=== PATIENT | female | born 1965 | race African-American/Black ===

== ENCOUNTER 2017-11-14 14:36 | Emergency (ER) | payer BC, MEDICAID ==
--- NOTE | 2017-11-14 15:11 | ER Document Report ---
ED Fever - General Chief Complaint: Fever Stated Complaint: FEVER/CHILLS Time Seen by Provider: 11/14/17 14:43 Notes: 52-year-old female patient to the emergency department via EMS from urgent care for evaluation of possible meningitis. Patient presented to the clinic complaining of severe neck pain, back pain and neck stiffness with headache and sore throat and fever. Sore throat started first. Radiates to the back of her neck. Goes down her spine. Cannot move her neck without significant pain. Denies any other major medical problems at this time. No recent surgeries. No recent antibiotic use. No concerning exposures. TRAVEL OUTSIDE OF THE [place] 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 denies: Malaise, Weakness EENT: Other - Neck stiffness, neck pain. denies: Blurred vision, Double vision Cardiovascular: denies: Chest pain, Palpitations, Heart racing Respiratory: denies: Cough, Hurts to breathe, Short of breath Gastrointestinal: denies: Abdominal pain, Diarrhea, Nausea, Vomiting Genitourinary: denies: Burning, Dysuria, Discharge Musculoskeletal: Back pain, Muscle pain, Muscle stiffness, Neck pain. denies: Joint pain Skin: denies: Change in color, Change in hair/nails, Dryness, Lesions, Lumps, Rash Hematologic/Lymphatic: denies: Anemia, Blood clots, Easy bleeding, Easy bruising Neurological/Psychological: Headaches. denies: Confusion, Dementia, Weakness, Paralysis, Seizure, Numbness Physical Exam - Vital signs Vitals: Pulse Ox 98 11/14/17 14:54 Interpretation: Normal - General General appearance: Appears well, Alert - HEENT Head: Normocephalic, Atraumatic Eyes: Normal Pupils: PERRL Nasal: Normal Mouth/Lips: Normal Mucous membranes: Normal Pharynx: Erythema. No: Exudate, Peritonsillar abscess Neck: Brudzinski, Meningismus. No: Neck mass, Supple - Respiratory Respiratory status: No respiratory distress Chest status: Nontender Breath sounds: Normal Chest palpation: Normal - Cardiovascular Rhythm: Regular Heart sounds: Normal auscultation Murmur: No - Abdominal Inspection: Normal Distension: No distension Bowel sounds: Normal Tenderness: Nontender Organomegaly: No organomegaly - Back Back: Normal, Nontender - Extremities General upper extremity: Normal inspection, Nontender, Normal color, Normal ROM , Normal temperature General lower extremity: Normal inspection, Nontender, Normal color, Normal ROM , Normal temperature, Normal weight bearing. No: Nicky's sign - Neurological Neuro grossly intact: Yes Cognition: Normal Orientation: AAOx4 Dany Coma Scale Eye Opening: Spontaneous [place] Coma Scale Verbal: Oriented [place] Coma Scale Motor: Obeys Commands [place] Coma Scale Total: 15 Speech: Normal Motor strength normal: LUE, RUE, LLE, RLE Sensory: Normal - Psychological Associated symptoms: Normal affect, Normal mood - Skin Skin Temperature: Warm Skin Moisture: Dry Skin Color: Normal Course - Re-evaluation Re-evalutation: 11/14/17 17:54 Rapid strep is positive. Still has neck stiffness. Proceeded with LP to rule out meningitis. Spinal fluid was clear. Sent to the lab. We will give some more pain medication at this time. 11/14/17 19:07 Gram stain pending. No WBCs. Appropriate amount of RBCs. Unlikely this represents meningitis. Patient feeling much more comfortable at this time. Fluids have been given. Antibiotics given. 11/14/17 23:58 LP was performed. Fluid was clear and no difficulty obtaining. CSF results were reviewed. Gram stain was negative. No WBCs. Patient received fluids, antibiotics and Toradol. Feeling much better. Neck is mobile and is no longer a problem. Rapid strep came back positive. This has been treated. We will discharge her at this time on antibiotics. Patient is sitting upright in no acute distress. Chest x-ray was reviewed. No widened mediastinum. Patient is moving neck freely. No chest pain. No shortness of breath. Swallowing is intact. Very low risk at this time with meningitis. Strict instructions were given that if symptoms are getting worse, unable to keep her medications down, any other symptoms she should return immediately. Patient is smiling and in no acute distress and is nontoxic appearing. Comfortable discharging at this time. 11/15/17 00:00 11/15/17 00:01 Microbiology 11/14/17 17:41 Gram Stain - Preliminary Cerebral Spinal Fluid - Csf Laboratory 11/14/17 11/14/17 11/14/17 14:17 14:17 14:17 WBC 19.4 H RBC 4.25 Hgb 12.0 Hct 36.1 MCV 85 MCH 28.1 MCHC 33.1 RDW 15.6 H Plt Count 237 Seg Neutrophils % 80.9 H Lymphocytes % 13.4 Monocytes % 5.4 Eosinophils % 0.1 Basophils % 0.2 Absolute Neutrophils 15.7 H Absolute Lymphocytes 2.6 Absolute Monocytes 1.0 Absolute Eosinophils 0.0 Absolute Basophils 0.0 ESR 80 H PT 15.1 INR 1.13 APTT 40.1 H Sodium 142.7 Potassium 3.6 Chloride 101 Carbon Dioxide 27 Anion Gap 15 BUN 10 Creatinine 0.76 Est GFR ( Amer) > 60 Est GFR (Non-Af Amer) > 60 Glucose 103 Lactic Acid Calcium 9.4 Total Bilirubin 0.7 Direct Bilirubin 0.4 Neonat Total Bilirubin Not Reportable Neonat Direct Bilirubin Not Reportable Neonat Indirect Bili Not Reportable AST 37 H ALT 30 Alkaline Phosphatase 129 H Creatine Kinase 77 CK-MB (CK-2) Troponin I C-Reactive Protein 80.2 H Total Protein 8.7 H Albumin 4.4 Fluid Tube Number CSF Volume CSF Appearance CSF Color CSF WBC CSF RBC CSF Glucose CSF Total Protein Group A Strep Rapid 11/14/17 11/14/17 11/14/17 14:17 14:59 16:08 WBC RBC Hgb Hct MCV MCH MCHC RDW Plt Count Seg Neutrophils % Lymphocytes % Monocytes % Eosinophils % Basophils % Absolute Neutrophils Absolute Lymphocytes Absolute Monocytes Absolute Eosinophils Absolute Basophils ESR PT INR APTT Sodium Potassium Chloride Carbon Dioxide Anion Gap BUN Creatinine Est GFR ( Amer) Est GFR (Non-Af Amer) Glucose Lactic Acid 0.8 Calcium Total Bilirubin Direct Bilirubin Neonat Total Bilirubin Neonat Direct Bilirubin Neonat Indirect Bili AST ALT Alkaline Phosphatase Creatine Kinase CK-MB (CK-2) < 0.22 Troponin I < 0.012 C-Reactive Protein Total Protein Albumin Fluid Tube Number CSF Volume CSF Appearance CSF Color CSF WBC CSF RBC CSF Glucose CSF Total Protein Group A Strep Rapid POSITIVE 07/31/18 07/31/18 07/31/18 17:41 17:41 18:34 WBC RBC Hgb Hct MCV MCH MCHC RDW Plt Count Seg Neutrophils % Lymphocytes % Monocytes % Eosinophils % Basophils % Absolute Neutrophils Absolute Lymphocytes Absolute Monocytes Absolute Eosinophils Absolute Basophils ESR PT INR APTT Sodium Potassium Chloride Carbon Dioxide Anion Gap BUN Creatinine Est GFR ( Amer) Est GFR (Non-Af Amer) Glucose Lactic Acid Calcium Total Bilirubin Direct Bilirubin Neonat Total Bilirubin Neonat Direct Bilirubin Neonat Indirect Bili AST ALT Alkaline Phosphatase Creatine Kinase CK-MB (CK-2) Troponin I C-Reactive Protein Total Protein Albumin Fluid Tube Number 1 4 CSF Volume 4.3 4.3 CSF Appearance CLEAR CLEAR CSF Color COLORLESS COLORLESS CSF WBC 0 1 CSF RBC 104 1 CSF Glucose 65 CSF Total Protein 47 Group A Strep Rapid - Vital Signs Vital signs: Temp Pulse Resp BP Pulse Ox 97.6 F 17 102/65 98 11/14/17 20:50 11/14/17 20:48 11/14/17 20:48 11/14/17 20:48 11/14/17 17:55 Laboratory 11/14/17 11/14/17 11/14/17 14:17 14:17 14:17 WBC 19.4 H RBC 4.25 Hgb 12.0 Hct 36.1 MCV 85 MCH 28.1 MCHC 33.1 RDW 15.6 H Plt Count 237 Seg Neutrophils % 80.9 H Lymphocytes % 13.4 Monocytes % 5.4 Eosinophils % 0.1 Basophils % 0.2 Absolute Neutrophils 15.7 H Absolute Lymphocytes 2.6 Absolute Monocytes 1.0 Absolute Eosinophils 0.0 Absolute Basophils 0.0 ESR 80 H PT 15.1 INR 1.13 APTT 40.1 H Sodium 142.7 Potassium 3.6 Chloride 101 Carbon Dioxide 27 Anion Gap 15 BUN 10 Creatinine 0.76 Est GFR ( Amer) > 60 Est GFR (Non-Af Amer) > 60 Glucose 103 Lactic Acid Calcium 9.4 Total Bilirubin 0.7 Direct Bilirubin 0.4 Neonat Total Bilirubin Not Reportable Neonat Direct Bilirubin Not Reportable Neonat Indirect Bili Not Reportable AST 37 H ALT 30 Alkaline Phosphatase 129 H Creatine Kinase 77 CK-MB (CK-2) Troponin I C-Reactive Protein 80.2 H Total Protein 8.7 H Albumin 4.4 Group A Strep Rapid 11/14/17 11/14/17 11/14/17 14:17 14:59 16:08 WBC RBC Hgb Hct MCV MCH MCHC RDW Plt Count Seg Neutrophils % Lymphocytes % Monocytes % Eosinophils % Basophils % Absolute Neutrophils Absolute Lymphocytes Absolute Monocytes Absolute Eosinophils Absolute Basophils ESR PT INR APTT Sodium Potassium Chloride Carbon Dioxide Anion Gap BUN Creatinine Est GFR ( Amer) Est GFR (Non-Af Amer) Glucose Lactic Acid 0.8 Calcium Total Bilirubin Direct Bilirubin Neonat Total Bilirubin Neonat Direct Bilirubin Neonat Indirect Bili AST ALT Alkaline Phosphatase Creatine Kinase CK-MB (CK-2) < 0.22 Troponin I < 0.012 C-Reactive Protein Total Protein Albumin Group A Strep Rapid POSITIVE Head CT 11/14/17 15:08 IMPRESSION: NORMAL BRAIN CT WITHOUT CONTRAST. EVIDENCE OF ACUTE STROKE: NO. Chest X-Ray 11/14/17 15:09 IMPRESSION: Borderline heart size with no CHF. - Laboratory Result Diagrams: 11/14/17 14:17 11/14/17 14:17 Laboratory results interpreted by me: 11/14/17 11/14/17 11/14/17 14:17 14:17 14:17 WBC 19.4 H RDW 15.6 H Seg Neutrophils % 80.9 H Absolute Neutrophils 15.7 H ESR 80 H APTT 40.1 H AST 37 H Alkaline Phosphatase 129 H C-Reactive Protein 80.2 H Total Protein 8.7 H Procedures - Lumbar Puncture Lumbar puncture Time completed: 18:00 Consent obtained: Yes Lumbar puncture pre-procedure: Sterile PPE donned, Betadine prep applied Patient position: Sitting Needle size: 22 Lumbar puncture location: L4-L5 Anesthetic type: 1% Lidocaine mL's of anesthetic: 8 Amount/type of drainage: 5 mL's Number of attempts: 2 Complications: No Discharge - Discharge Clinical Impression: Strep sore throat Condition: Good Disposition: HOME, SELF-CARE Instructions: Strep Throat ([facility]) Additional Instructions: Continue take antibiotics as instructed. In the event that symptoms are getting worse it is very important to return. Get plenty of rest. Tylenol or ibuprofen for pain and fever. Follow-up with your regular doctor if symptoms persist. You did have a spinal tap today. Sometimes he can develop a headache after spinal tap. If you notice that you are getting a worsening headache when you go from sitting to standing or from lying to standing then you could have a spinal headache which is easily taking care of but you will need to be seen again. Prescriptions: Cefdinir [Omnicef 300 mg Capsule] 1 cap PO BID 10 Days #20 capsule Forms: Return to Work Referrals: PRECIOUS HAINES MD [ACTIVE STAFF] - Follow up as needed
[2017-11-14 15:21] LABS: INTERNATIONAL RATION (INR) 1.13; PROTHROMBIN TIME 15.1 SEC (11.4-15.4)
[2017-11-14 15:23] LABS: PARTIAL THROMBOPLASTIN TIME 40.1 SEC (23.5-35.8)
[2017-11-14 15:24] LABS: ABSOLUTE LYMPHOCYTES (AUTO) 2.6 10^3/uL (0.5-4.7); ABSOLUTE NEUT (AUTO) 15.7 10^3/uL (1.7-8.2); BASOPHILS % (AUTO) 0.2 % (0-2); EOSINOPHILS % (AUTO) 0.1 % (0-6); HEMATOCRIT 36.1 % (36.0-47.0); LYMPHOCYTES % (AUTO) 13.4 % (13-45); MEAN CORPUSCULAR HEMOGLOBIN 28.1 pg (27.0-33.4); MEAN CORPUSCULAR HGB CONC 33.1 g/dL (32.0-36.0); MEAN CORPUSCULAR VOLUME 85 fl (80-97); MONOCYTES % (AUTO) 5.4 % (3-13); PLATELET COUNT 237 10^3/uL (150-450); RED BLOOD COUNT 4.25 10^6/uL (3.72-5.28); RED CELL DISTRIBUTION WIDTH 15.6 % (11.5-14.0); SEGMENTED NEUTROPHILS % (AUTO) 80.9 % (42-78); TOTAL CELLS COUNTED % (AUTO) 100 %; WHITE BLOOD COUNT 19.4 10^3/uL (4.0-10.5)
[2017-11-14 15:38] LABS: ALANINE AMINOTRANSFERASE 30 U/L (9-52); ALBUMIN 4.4 g/dL (3.5-5.0); ALKALINE PHOSPHATASE 129 U/L (38-126); ANION GAP 15 (5-19); ASPARTATE AMINO TRANSFERASE 37 U/L (14-36); BILIRUBIN,DIRECT 0.4 mg/dL (0.0-0.4); BILIRUBIN,TOTAL 0.7 mg/dL (0.2-1.3); BLOOD UREA NITROGEN 10 mg/dL (7-20); C-REACTIVE PROTEIN 80.2 mg/L (<10.0); CALCIUM 9.4 mg/dL (8.4-10.2); CARBON DIOXIDE 27 mmol/L (22-30); CHLORIDE 101 mmol/L (98-107); CREATINE KINASE 77 U/L (30-135); GLUCOSE 103 mg/dL (75-110); POTASSIUM 3.6 mmol/L (3.6-5.0); SODIUM 142.7 mmol/L (137-145); TOTAL PROTEIN 8.7 g/dL (6.3-8.2)
--- NOTE | 2017-11-14 15:41 | RADIOLOGY REPORT (SQ) ---
EXAM DESCRIPTION: CT HEAD WITHOUT COMPLETED DATE/TIME: 11/14/2017 3:28 pm REASON FOR STUDY: headache fever, neck stiffness COMPARISON: 09/09/2014 TECHNIQUE: Axial images acquired through the brain without intravenous contrast. Images reviewed wi th bone, brain and subdural windows. Additional sagittal and coronal reconstructions were generated. Images stored on PACS. All CT scanners at this facility use dose modulation, iterative reconstruction, and/or weight based d osing when appropriate to reduce radiation dose to as low as reasonably achievable (ALARA). [facility]: Dose Right [facility]: CareDose [facility]: Dose Right [facility]: Teradose 4D [facility]: Smart [employer] RADIATION DOSE: CT Rad equipment meets quality standard of care and radiation dose reduction techniq ues were employed. CTDIvol: 53.2 mGy. DLP: 964 mGy-cm. mGy. LIMITATIONS: None. FINDINGS: VENTRICLES: Normal size and contour. CEREBRUM: No masses. No hemorrhage. No midline shift. No evidence for acute infarction. Normal gra y/white matter differentiation. No areas of low density in the white matter. CEREBELLUM: No masses. No hemorrhage. No alteration of density. No evidence for acute infarction. EXTRAAXIAL SPACES: No fluid collections. No masses. ORBITS AND GLOBE: No intra- or extraconal masses. Normal contour of globe without masses. CALVARIUM: No fracture. PARANASAL SINUSES: No fluid or mucosal thickening. SOFT TISSUES: No mass or hematoma. OTHER: No other significant finding. IMPRESSION: NORMAL BRAIN CT WITHOUT CONTRAST. EVIDENCE OF ACUTE STROKE: NO. COMMENT: Quality ID # [id number]: Final reports with documentation of one or more dose reduction techniques (e.g., Automated exposure control, adjustment of the mA and/or kV according to patient size, use of iterative reconstruction technique) TECHNICAL DOCUMENTATION: JOB ID: [id number] [employer]- All Rights Reserved Reading location - IP/workstation name: [email or web address]
--- NOTE | 2017-11-14 15:47 | RADIOLOGY REPORT (SQ) ---
EXAM DESCRIPTION: CHEST SINGLE VIEW COMPLETED DATE/TIME: 11/14/2017 3:38 pm REASON FOR STUDY: cp COMPARISON: None. EXAM PARAMETERS: NUMBER OF VIEWS: One view. TECHNIQUE: Single frontal radiographic view of the chest acquired. RADIATION DOSE: NA LIMITATIONS: None. FINDINGS: LUNGS AND PLEURA: No opacities, masses or pneumothorax. No pleural effusion. MEDIASTINUM AND HILAR STRUCTURES: No masses. Contour normal. HEART AND VASCULAR STRUCTURES: Heart size is borderline. No evidence of failure. BONES: No acute findings. HARDWARE: None in the chest. OTHER: No other significant finding. IMPRESSION: Borderline heart size with no CHF. TECHNICAL DOCUMENTATION: JOB ID: [id number] [employer]- All Rights Reserved Reading location - IP/workstation name: [email or web address]
[2017-11-14 15:55] LABS: CREATINE KINASE MB < 0.22 ng/mL (<4.55); TROPONIN I < 0.012 ng/mL
[2017-11-14 16:06] LABS: ERYTHROCYTE SEDIMENTATION RATE 80 mm/hr (0-30)
[2017-11-14] MEDS ORDERED: CEFTRIAXONE 2 GM/D5W RTU 2 GM/50 ML RTUPB IV ONE (16:23)
[2017-11-14] MEDS ORDERED: LIDOCAINE 1% INJ-PF (10 MG/ML) 30 ML SDV INJ ONE (16:24)
[2017-11-14] MEDS ORDERED: NORMAL SALINE 1000 ML 1,000 ML IV ONE (16:24)
[2017-11-14] MEDS ORDERED: FENTANYL CITRATE INJ/PF 100 MCG/2 ML AMPUL IV ONE (17:51)
[2017-11-14] MEDS ORDERED: KETOROLAC TROMETHAMINE INJ/PF 30 MG/1 ML SDV IV ONE (17:51)
[2017-11-14 18:57] LABS: APPEARANCE ALL TUBES CLEAR; COLOR ALL TUBES COLORLESS; CSF TOTAL VOLUME 4.3 CC; CSF TUBE NUMBER 1; VOLUME TUBE 3 0.8 CC; VOLUME TUBE 4 1.5 CC
[2017-11-14 18:58] LABS: RED BLOOD CELL,CSF 104 /uL (0-10); WHITE BLOOD CELL,CSF 0 /uL (0-5)
[2017-11-14 18:59] LABS: APPEARANCE ALL TUBES CLEAR; COLOR ALL TUBES COLORLESS; CSF TOTAL VOLUME 4.3 CC; CSF TUBE NUMBER 4; RED BLOOD CELL,CSF 1 /uL (0-10); VOLUME TUBE 3 0.8 CC; VOLUME TUBE 4 1.5 CC
[2017-11-14 19:00] LABS: WHITE BLOOD CELL,CSF 1 /uL (0-5)
[2017-11-14 19:05] LABS: GLUCOSE,CSF 65 mg/dL (40-70); PROTEIN,CSF 47 mg/dL (12-60)
[2017-11-14 20:56] VITALS: BP 102/65
--- NOTE | 2017-11-14 22:23 | EKG REPORT ---
SEVERITY:- ABNORMAL ECG - SINUS RHYTHM YENI, CONSIDER BIATRIAL ABNORMALITIES BORDERLINE T ABNORMALITIES, LATERAL LEADS : Confirmed by: Kierra Garcia 14-Nov-2017 22:22:40
== END 2017-11-14 20:56 | disposition home or self-care (01) ==
LOC: ER 14:36
DX: J02.0 Streptococcal pharyngitis (principal); R50.9 Fever, unspecified
CPT/HCPCS: 93005; 99285; 96361; 96375; 96365; 36415; 87040; 87070; 87205; 82553; 87880; 82550; 83605; 85025; 85652; 85610; 85730; 89050; 82945; 84157; 86140; 80053; 84484; 71045; 70450; 93010; 62270; J3010; J3490; J1885; J7030; J0696

== ENCOUNTER 2017-11-19 12:21 | Emergency (ER) | payer BC ==
--- NOTE | 2017-11-19 12:43 | ER Document Report ---
HPI - HPI Patient complains to provider of: Needs a note to return to work Onset: Other - 11/14 Pain Level: 1 Context: 52-year-old female was seen in the emergency department on November 14 with generalized body aches and headache and fever. Spinal tap was done. She has been doing well and been taking cefdinir 300 mg twice daily. They thought she may have been septic with strep. She comes in today because she needs a note to release her back to work. She has some left lower thoracic back pain in the flank area that is worse when she takes a deep breath and moves. No rash. No fever. No shortness of breath. No abdominal pain. No vomiting or diarrhea. Associated Symptoms: None Exacerbated by: Movement - And taking a deep, Deep breathing Relieved by: Denies Similar symptoms previously: No Recently seen / treated by doctor: No - ROS ROS below otherwise negative: Yes Systems Reviewed and Negative: Yes All other systems reviewed and negative - REPRODUCTIVE Reproductive: DENIES: : Past Medical History - General Information source: Patient - Social History Smoking Status: Never Smoker Frequency of alcohol use: None Drug Abuse: None Lives with: Family Family History: Reviewed & Not Pertinent Neurological Medical History: Reports: Hx Migraine Renal/ Medical History: Denies: Hx Peritoneal Dialysis Musculoskeletal Medical History: 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 IN LAST 30 DAYS: No - HEENT HEENT: Normal ENT Exam - NECK Neck: Supple. negative: Lymphadenopathy-Left, Lymphadenopathy-Right - RESPIRATORY Respiratory: Breath Sounds Normal, No Respiratory Distress - CARDIOVASCULAR Cardiovascular: Regular Rate, Regular Rhythm - GI/ABDOMEN Gastrointestinal: Abdomen Soft, Abdomen Non-Tender - BACK Back: Normal Inspection Notes: No rash, she grabs her lower thoracic back when she takes a deep breath, no CVAT. - MUSCULOSKELETAL/EXTREMETIES Musculoskeletal/Extremeties: MAEW, FROM, Tender - See above - NEURO Level of Consciousness: Alert Motor/Sensory: No Motor Deficit, No Sensory Deficit - DERM Integumentary: Warm, Dry, No Rash Course - Re-evaluation Re-evalutation: 11/19/17 13:50 1+ bacteria in the urine urine culture is pending, 2 WBC and 1 RBC and microscopy. Chest x-ray is negative per rad. I consulted with Dr. dari phillips and she felt like a chest x-ray and urinalysis is all that is needed. 11/19/17 14:[address] dari phillips again about recommendations for diagnosis and treatment. The patient understands all the instructions. I explained to this patient this could be muscles, collapsed tiny ear alveoli, or inflammation of the left lower lung or pleurisy. - Vital Signs Vital signs: Temp Pulse Resp BP Pulse Ox 98.2 F 52 L 20 131/78 H 97 11/19/17 12:25 11/19/17 12:25 11/19/17 12:25 11/19/17 12:25 11/19/17 12:25 Discharge - Discharge Clinical Impression: Left lower thoracic back pain, Left lung pleurisy versus atelectasis Condition: Good Disposition: HOME, SELF-CARE Instructions: Ibuprofen (General) ([facility]), Low Back Pain ([facility]), Pleurisy ([facility]), Topical Lidocaine ([facility]), Warm Packs ([facility]) Additional Instructions: Warm compress Continue the antibiotics Urine culture is pending Topical lidocaine patch wear that for 12 hours and then remove If the lidocaine patch helps you can purchase more [id number] Motrin 3 times a day with food for the inflammation Use the incentive spirometer every couple of hours and hold the ball up to keep your lungs expanded for 2-3 days Return to the emergency room for any increased pain, shortness of breath, fever or numbness or tingling. Prescriptions: Ibuprofen [Motrin 600 mg Tablet] 600 mg PO Q8HP PRN #30 tablet PRN Reason: Forms: Restricted Release, Return to Work
[2017-11-19 13:14] LABS: APPEARANCE,URINE SLIGHTLY-CLOUDY; BILIRUBIN,URINE NEGATIVE (NEGATIVE); COLOR,URINE YELLOW; GLUCOSE, URINE NEGATIVE (NEGATIVE); KETONES,URINE NEGATIVE (NEGATIVE); LEUKOCYTE ESTERASE,URINE SMALL (NEGATIVE); NITRITE,URINE NEGATIVE (NEGATIVE); PROTEIN,URINE NEGATIVE (NEGATIVE); URINE SPECIFIC GRAVITY 1.015; UROBILINOGEN,URINE NEGATIVE mg/dL (<2.0)
--- NOTE | 2017-11-19 13:28 | RADIOLOGY REPORT (SQ) ---
EXAM DESCRIPTION: CHEST 2 VIEWS COMPLETED DATE/TIME: 11/19/2017 1:13 pm REASON FOR STUDY: splinting, lower right thoracic pain COMPARISON: 11/14/2017. EXAM PARAMETERS: NUMBER OF VIEWS: two views TECHNIQUE: Digital Frontal and Lateral radiographic views of the chest acquired. RADIATION DOSE: NA LIMITATIONS: none FINDINGS: LUNGS AND PLEURA: No acute infiltrates or effusions. MEDIASTINUM AND HILAR STRUCTURES: No masses or contour abnormalities. HEART AND VASCULAR STRUCTURES: Borderline cardiomegaly. BONES: No acute findings. HARDWARE: None in the chest. OTHER: Surgical clips right upper quadrant. IMPRESSION: No significant interval change. TECHNICAL DOCUMENTATION: JOB ID: [id number] 2010 [employer]- All Rights Reserved Reading location - IP/workstation name: [email or web address]
[2017-11-19] MEDS ORDERED: IBUPROFEN 600 MG TABLET PO ONE (14:12)
[2017-11-19] MEDS ORDERED: LIDOCAINE 5% (700 MG) TRANSDERMAL ADH..PATCH TP ONE (14:12)
[2017-11-19 14:29] VITALS: BP 135/76
== END 2017-11-19 14:27 | disposition home or self-care (01) ==
LOC: ER 12:21
DX: M54.6 Pain in thoracic spine (principal); R10.9 Unspecified abdominal pain
CPT/HCPCS: 71046; 81001; 87086; 99284

== ENCOUNTER → 2018-03-13 | Outpatient (CLI) | payer BC ==
--- NOTE | 2018-03-13 10:20 | WOMENS IMAGING REPORT ---
EXAM DESCRIPTION: BILAT SCREENING MAMMO W/CAD COMPLETED DATE/TIME: 03/13/2018 9:08 am REASON FOR STUDY: BILATERAL SCREENING MAMMO/Z12.31 Z12.31 ENCNTR SCREEN MAMMOGRAM FOR MALIGNANT ABHI PLASM OF [place] COMPARISON: 2010, 2012 TECHNIQUE: Standard craniocaudal and mediolateral oblique views of each breast recorded using [employer] acquisition. LIMITATIONS: None. FINDINGS: No masses, calcifications or architectural distortion. No areas of suspicion. Read with the assistance of CAD. .[facility] - R2 Cenova Version 1.3 .[facility] Imaging - R2 Cenova Version 1.3 .[facility] - R2 Cenova Version 2.4 .[facility] - R2 Cenova Version 2.4 .[facility] - R2 Management Trainer Version 9.2 IMPRESSION: NORMAL MAMMOGRAM. BIRADS 1. BREAST DENSITY: a. The breasts are almost entirely fatty. BIRAD: 1 NEGATIVE RECOMMENDATION: ROUTINE SCREENING Please continue yearly bilateral screening mammography/tomosynthesis in February 2019 COMMENT: The patient has been notified of the results by letter per [place] requirements. Additional no tification policies are in place for contacting patient with suspicious or incomplete findings. Quality ID #[id number]: The [employer] recommends an annual screening mammogram for women aged 40 years or over. This facility utilizes a reminder system to ensure that all patients receive reminder letters, and/or direct phone calls for appointments. This includes reminders for routine scr eening mammograms, diagnostic mammograms, or other Breast Imaging Interventions when appropriate. Th is patient will be placed in the appropriate reminder system. The [employer] (ACR) has developed recommendations for screening MRI of the breast s in certain patient populations, to be used in conjunction with mammography. Breast MRI surveillanc e may be appropriate for women with more than 20% lifetime risk of developing breast cancer as deter mined by genetic testing, significant family history of the disease, or history of mantle radiation f or Hodgkins Disease. ACR Practice Guidelines 2008. TECHNICAL DOCUMENTATION: FINDING NUMBER: (1) ASSESSMENT: (1) JOB ID: [id number] A acuity 2010 [employer]- All Rights Reserved Reading location - IP/workstation name: [email or web address]
== END ==
LOC: WI 08:33
PROVIDERS: ATTEND Family Medicine
DX: Z12.31 Encounter for screening mammogram for malignant neoplasm of breast (principal)
CPT/HCPCS: 77067

== ENCOUNTER → 2019-06-27 | Outpatient (CLI) | payer BC ==
[2019-06-27 13:26] LABS: HEMOGLOBIN 12.2 g/dL (12.0-15.5); MEAN CORPUSCULAR HEMOGLOBIN 28.2 pg (27.0-33.4); MEAN CORPUSCULAR VOLUME 86 fl (80-97); PLATELET COUNT 214 10^3/uL (150-450); RED BLOOD COUNT 4.32 10^6/uL (3.72-5.28); RED CELL DISTRIBUTION WIDTH 15.4 % (11.5-14.0)
[2019-06-27 13:58] LABS: ALBUMIN 4.3 g/dL (3.5-5.0); ALKALINE PHOSPHATASE 104 U/L (38-126); ANION GAP 7 (5-19); ASPARTATE AMINO TRANSFERASE 22 U/L (14-36); BILIRUBIN,DIRECT 0.3 mg/dL (0.0-0.4); BILIRUBIN,TOTAL 0.6 mg/dL (0.2-1.3); BLOOD UREA NITROGEN 14 mg/dL (7-20); CALCIUM 9.5 mg/dL (8.4-10.2); CARBON DIOXIDE 33 mmol/L (22-30); CHLORIDE 102 mmol/L (98-107); GLUCOSE 88 mg/dL (75-110); POTASSIUM 4.5 mmol/L (3.6-5.0); TOTAL PROTEIN 8.2 g/dL (6.3-8.2)
[2019-06-27 14:16] LABS: ERYTHROCYTE SEDIMENTATION RATE 72 mm/hr (0-30)
[2019-06-27 20:07] LABS: C DIFFICILE GDH NEGATIVE (NEGATIVE)
== END ==
LOC: OD 13:04
PROVIDERS: ATTEND Family Medicine
DX: A09 Infectious gastroenteritis and colitis, unspecified (principal); R10.9 Unspecified abdominal pain
CPT/HCPCS: 36415; 80053; 85027; 85652; 87324; 87449; 89055